=== PATIENT | female | born 1950 | race Caucasian/White ===

== ENCOUNTER → 2020-12-25 | Emergency (ER) | payer MEDICARE ==
[~2020-12-25] VITALS: Ht 160 cm; Wt 50.0 kg
[~2020-12-25] MED LIST: CefTRIAXone 2gm/D5W 50ml BAG 50 ML IV ONE; SERT25TA84 PO; TRAZ-251 PO; VENL37.55 PO; cephalexin 250mg capsule PO SCH; dextrose 5%-normal saline 1,000 ML IV ONE; normal saline 1000ML IV soln IV ONE; sertraline 25mg tablet PO SCH; traZODone 50mg tablet PO SCH; venlafaxine XR 37.5mg cap (Q24H) PO SCH; zocor PO
--- NOTE | 2020-12-25 15:37 | NUR ---
pt placed in room 14. dressed in green scrubs. pt laying quietly on side. states no pain and given a warm blanket. will continue to monitor
[2020-12-25 16:05] LABS: BASOPHILS # (AUTO) 0.1 X10'3 (0-0.2); BASOPHILS % (AUTO) 0.6 % (0-1); EOSINOPHILS # (AUTO) 0.1 X10'3 (0-0.9); EOSINOPHILS % (AUTO) 0.9 % (0-6); HEMATOCRIT 44.4 % (35.0-45.0); LYMPHOCYTES # (AUTO) 1.2 X10'3 (1.1-4.8); LYMPHOCYTES % (AUTO) 13.8 % (21-51); MEAN CORPUSCULAR HEMOGLOBIN 29.8 PG (27.0-31.0); MEAN CORPUSCULAR HGB CONC 33.8 g/dL (33.0-36.5); MEAN PLATELET VOLUME 7.7 FL (7.4-10.4); MONOCYTES # (AUTO) 0.9 X10'3 (0-0.9); MONOCYTES % (AUTO) 9.7 % (2-12); NEUTROPHILS # (AUTO) 6.7 X10'3 (1.8-7.7); PLATELET COUNT 331 X10'3 (140-440); RED BLOOD COUNT 5.04 X10'6 (4.20-5.60); RED CELL DISTRIBUTION WIDTH 12.8 % (11.5-14.5); WHITE BLOOD COUNT 8.9 X10'3 (4.5-11.0)
[2020-12-25 16:21] LABS: ALANINE AMINOTRANSFERASE 15 U/L (12-78); ALBUMIN 4.4 G/DL (3.4-5.0); ALBUMIN/GLOBULIN RATIO 1.3 (1.1-1.5); ALKALINE PHOSPHATASE 61 IU/L (46-116); ANION GAP 11 (8-16); ASPARTATE AMINO TRANSFERASE 18 U/L (10-37); BILIRUBIN,TOTAL 0.8 MG/DL (0.1-1.0); BLOOD UREA NITROGEN 19 MG/DL (7-18); BUN/CREATININE RATIO 29.2 (6.6-38.0); CALCIUM 8.8 MG/DL (8.5-10.1); CHLORIDE 102 MMOL/L (99-107); CREATININE 0.65 MG/DL (0.40-0.90); GLUCOSE 94 MG/DL (70-104); POTASSIUM 3.7 MMOL/L (3.5-5.1); SODIUM 140 MMOL/L (135-145); TOTAL CARBON DIOXIDE 27.2 MMOL/L (24-32); TOTAL PROTEIN 7.7 G/DL (6.4-8.2); eGFR 90 ML/MIN
[2020-12-25 16:30] LABS: ETHANOL < 0.010 GM/DL (0.0-0.010)
--- NOTE | 2020-12-25 17:50 | NUR ---
PT STATES THAT SHE IS UNABLE TO PROVIDE A URINE SAMPLE. PT REQUESTED THAT SHE AT LEAST TRY AND WAS WALKED TO THE BATHROOM. PT SPENT LESS THAN 1 MIN IN THE BATHROOM WHEN SHE CAME OUT AND SAID SHE WAS UNABLE TO GIVE A SAMPLE. PT RETURNED TO HER ROOM AND GIVEN SOME WATER.
[2020-12-25 18:44] LABS: CLARITY,URINE CLEAR (Clear); COLOR,URINE AMBER (Yellow); GLUCOSE, URINE NEGATIVE (Neg); KETONES,URINE >=80 mg/dl (Neg); LEUKOCYTE ESTERASE ,URINE NEGATIVE (Neg); NITRITES, URINE NEGATIVE (Neg); OCCULT BLOOD,URINE NEGATIVE (Neg); PH,URINE 5.5 (4.8-8.0); PROTEIN,URINE 30 mg/dl (Neg)
[2020-12-25 18:52] LABS: UA COLLECTION TYPE CLN CATCH MIDSTREAM
[2020-12-25 18:54] LABS: MUCUS STRANDS MANY /LPF (Neg); SQUAMOUS EPITHELIAL CELL,UR FEW /LPF (FEW)
[2020-12-25 18:55] LABS: URINE AMPHETAMINE SCREEN NEGATIVE (Neg); URINE BARBITUATE SCREEN NEGATIVE (Neg); URINE BENZODIAZEPINES SCREEN NEGATIVE (Neg); URINE CANNABINOID SCREEN NEGATIVE (Neg); URINE COCAINE SCREEN NEGATIVE (Neg); URINE METHADONE SCREEN NEGATIVE (Neg); URINE OPIATE SCREEN NEGATIVE (Neg); URINE PHENCYCLIDINE SCREEN NEGATIVE (Neg)
[2020-12-25 18:56] LABS: BACTERIA,URINE NONE SEEN /HPF (Neg); RBC,URINE 0-2 /HPF (0-2)
--- NOTE | 2020-12-25 20:00 | NUR ---
The patient was moved to bed 26 in the ER overflow. She was polite and cooperative. She stated that she has been unable to sleep for several days. She reports that she has been suicidal. She denies anxiety at this time. She denies A/V hallucinations. She stated that she has been feeling confused. She denies s/s of UTI.
--- NOTE | 2020-12-25 21:50 | NUR ---
The patient is unable to provide an accurate medication list. A phone message was left for her .
--- NOTE | 2020-12-25 21:51 | NUR ---
Ronan Gaviria, Patient's ,
--- NOTE | 2020-12-25 21:55 | NUR ---
Call to [facility] to request a psychiatriac consult
--- NOTE | 2020-12-25 22:08 | NUR ---
Patient's called with medication list and med rec completed
--- NOTE | 2020-12-26 00:25 | NUR ---
The patient appears to be sleeping
--- NOTE | 2020-12-26 01:23 | NUR ---
THe patient appears to be sleeping
--- NOTE | 2020-12-26 03:06 | NUR ---
The patient appears to be sleeping
--- NOTE | 2020-12-26 05:00 | NUR ---
The patient appears to be sleeping
[2020-12-26 05:44] VITALS: BP 126/78
--- NOTE | 2020-12-26 08:00 | NUR ---
Pt awake and up to use restroom. Eating breakfast.
--- NOTE | 2020-12-26 08:38 | NUR ---
Pt ate eggs and 25% of waffles but not anything else. Drinking water with encouragement and requested jello.
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
--- NOTE | 2020-12-26 10:47 | NUR ---
Pt d/c to home with . Made a contract for safety with family and denies SI. She wants to resume care in [place] and family will help facilitate and provide support. Reviewed discharge paperwork, given belongings, IV removed. Security escorted pt and out of the building at 1046.
== END | disposition home or self-care (01) ==
LOC: ER 13:58
DX: F29 Unspecified psychosis not due to a substance or known physiological condition (principal); F41.9 Anxiety disorder, unspecified; Z79.899 Other long term (current) drug therapy
CPT/HCPCS: 36415; 80053; 80305; 80320; 81001; 84145; 84443; 85025; 96365; 99284; J0696; J7030; J7042; 96368; 99285